=== PATIENT | male | born 1985 | race African-American/Black ===

== ENCOUNTER 2017-07-13 00:51 | Emergency (ER) | payer OTHER, SELFPAY ==
[~2017-07-13] VITALS: Ht 185.4 cm; Wt 94.0 kg
[2017-07-13] MEDS ORDERED: ASPI-650 PO (01:26)
[2017-07-13] MEDS ORDERED: HTN (01:26)
[2017-07-13] MEDS ORDERED: CEFTRIAXONE 250 MG IM ONE (02:30)
[2017-07-13] MEDS ORDERED: AZITHROMYCIN 500 MG TABLET PO ONE (02:30)
[2017-07-13] MEDS ORDERED: CEFTRIAXONE 250 MG ONE (02:42)
[2017-07-13] MEDS ORDERED: AZITHROMYCIN 250 MG TABLET ONE (02:42)
[2017-07-13 03:11] VITALS: BP 115/70
== END 2017-07-13 03:12 | disposition home or self-care (01) ==
LOC: ED 03:07
DX: A56.01 Chlamydial cystitis and urethritis (principal); M79.652 Pain in left thigh; I10 Essential (primary) hypertension; F17.200 Nicotine dependence, unspecified, uncomplicated; Z86.711 Personal history of pulmonary embolism; Z86.718 Personal history of other venous thrombosis and embolism
CPT/HCPCS: 93005; 93971; 96372; 99284; J0696

== ENCOUNTER 2018-03-01 02:48 | Emergency (ER) | payer SELFPAY ==
[~2018-03-01] VITALS: Ht 185.4 cm; Wt 87.0 kg
[~2018-03-01 02:48] MED LIST: ASPI-650 PO; HTN
[2018-03-01 03:47] LABS: BASOPHILS # (AUTO) 0.01 x10^3/uL (0-0.1); BASOPHILS % (AUTO) 0 % (0-1); EOSINOPHILS # (AUTO) 0.03 x10^3/uL (0-0.4); EOSINOPHILS % (AUTO) 1 % (1-7); LYMPHOCYTES # (AUTO) 1.49 x10^3/uL (1-3.4); LYMPHOCYTES % (AUTO) 26 % (22-44); MD NO; MEAN CORPUSCULAR HEMOGLOBIN 27.7 pg (27.5-34.5); MEAN CORPUSCULAR HGB CONC 33.8 g/dL (33.2-36.2); MEAN CORPUSCULAR VOLUME 81.8 fL (81-97); MEAN PLATELET VOLUME 7.4 fL (7.4-10.4); MONOCYTES # (AUTO) 0.26 x10^3/uL (0.2-0.8); MONOCYTES % (AUTO) 5 % (2-9); NEUTROPHILS # (AUTO) 3.99 x10^3/uL (1.8-6.8); NEUTROPHILS % (AUTO) 69 % (42-75); PLATELET COUNT 215 x10^3/uL (130-400); RED BLOOD COUNT 5.52 x10^6/uL (4.38-5.82); RED CELL DISTRIBUTION WIDTH 13.4 % (9.4-14.8)
[2018-03-01 03:53] LABS: ALANINE AMINOTRANSFERASE 20 U/L (12-78); ALBUMIN 3.7 g/dL (3.4-5.0); ANION GAP 5 mmol/L (5-15); CALCIUM 9.2 mg/dL (8.5-10.1); CHLORIDE 108 mmol/L (98-107); CREATININE 1.41 mg/dL (0.7-1.3)
[2018-03-01 03:57] LABS: ALKALINE PHOSPHATASE 48 U/L (45-117); TROPONIN I < 0.015 ng/mL (0.000-0.045)
[2018-03-01 04:00] LABS: BILIRUBIN,TOTAL 0.3 mg/dL (0.2-1.0)
[2018-03-01 05:16] VITALS: BP 130/85
== END 2018-03-01 05:20 | disposition home or self-care (01) ==
LOC: ED 05:06
DX: S29.011A Strain of muscle and tendon of front wall of thorax, initial encounter (principal); I10 Essential (primary) hypertension; X58.XXXA Exposure to other specified factors, initial encounter; Z86.711 Personal history of pulmonary embolism; Z86.718 Personal history of other venous thrombosis and embolism; Y93.B2 Activity, push-ups, pull-ups, sit-ups; Y92.89 Other specified places as the place of occurrence of the external cause; Y99.8 Other external cause status
CPT/HCPCS: 36415; 71045; 80053; 84484; 85025; 85379; 93005; 99285

== ENCOUNTER 2018-08-17 18:10 | Emergency (ER) | payer MEDICAID ==
[~2018-08-17] VITALS: Ht 190.5 cm; Wt 89.4 kg
[2018-08-17] MEDS ORDERED: ACETAMINOPHEN 500 MG TABLET PO ONE (19:00)
[2018-08-17] MEDS ORDERED: ASPI-650 PO (19:05)
[2018-08-17] MEDS ORDERED: RIVAROXABAN 15 MG TABLET PO ONE (20:15)
[2018-08-17] MEDS ORDERED: RIVAROXABAN 10 MG TABLET ONE (20:31)
[2018-08-17] MEDS ORDERED: ACETAMINOPHEN 500 MG TABLET ONE (20:32)
[2018-08-17 20:38] LABS: BASOPHILS # (AUTO) 0.03 x10^3/uL (0-0.1); BASOPHILS % (AUTO) 0 % (0-1); EOSINOPHILS # (AUTO) 0.09 x10^3/uL (0-0.4); EOSINOPHILS % (AUTO) 1 % (1-7); LYMPHOCYTES # (AUTO) 2.15 x10^3/uL (1-3.4); LYMPHOCYTES % (AUTO) 27 % (22-44); MD NO; MEAN CORPUSCULAR HEMOGLOBIN 27.9 pg (27.5-34.5); MEAN CORPUSCULAR HGB CONC 33.5 g/dL (33.2-36.2); MEAN CORPUSCULAR VOLUME 83.2 fL (81-97); MEAN PLATELET VOLUME 7.4 fL (7.4-10.4); MONOCYTES # (AUTO) 0.35 x10^3/uL (0.2-0.8); MONOCYTES % (AUTO) 4 % (2-9); NEUTROPHILS # (AUTO) 5.45 x10^3/uL (1.8-6.8); NEUTROPHILS % (AUTO) 68 % (42-75); PLATELET COUNT 255 x10^3/uL (130-400); RED BLOOD COUNT 5.66 x10^6/uL (4.38-5.82)
[2018-08-17 20:48] LABS: ALBUMIN 3.8 g/dL (3.4-5.0); ANION GAP 5 mmol/L (5-15); CALCIUM 8.6 mg/dL (8.5-10.1); CHLORIDE 109 mmol/L (98-107)
[2018-08-17 21:53] VITALS: BP 142/90
[2018-08-20] MEDS ORDERED: BLOOD THINNER (06:06)
== END 2018-08-17 22:41 | disposition home or self-care (01) ==
LOC: ED 21:49
DX: I82.4Z2 Acute embolism and thrombosis of unspecified deep veins of left distal lower extremity (principal); N28.9 Disorder of kidney and ureter, unspecified; I10 Essential (primary) hypertension; F17.200 Nicotine dependence, unspecified, uncomplicated
CPT/HCPCS: 36415; 80048; 82040; 85025; 93970; 99284

== ENCOUNTER 2018-08-17 22:21 | Emergency (ER) | payer MEDICAID ==
[~2018-08-17] VITALS: Ht 185.4 cm; Wt 89.0 kg
[2018-08-17 22:22] VITALS: BP 135/72
[2018-08-20] MEDS ORDERED: BLOOD THINNER (06:06)
== END 2018-08-17 22:39 | disposition home or self-care (01) ==
LOC: ED 22:33
DX: S39.012A Strain of muscle, fascia and tendon of lower back, initial encounter (principal); X58.XXXA Exposure to other specified factors, initial encounter; Y93.89 Activity, other specified; Y92.89 Other specified places as the place of occurrence of the external cause; Y99.8 Other external cause status
CPT/HCPCS: 99283

== ENCOUNTER 2019-03-05 04:10 | Emergency (ER) | payer MEDICAID ==
[~2019-03-05] VITALS: Ht 182.9 cm; Wt 98.1 kg
[~2019-03-05 04:10] MED LIST changes: +BLOOD THINNER
--- NOTE | 2019-03-05 04:30 | NUR ---
PT PRESENTED WITH C/O NONRADIATING RIGHT SIDED CP THAT IS WORSE WITH MOVEMENT. PT DENIES SOB, N/V, DIZZINESS. HERE STATING THAT HE BELIEVES HE HAS A BLOOD CLOT IN HIS CHEST, ARRIVED IN [place] 5 DAYS AGO ON A BUS. MONITORS APPLIED, SIDERAILS UP X2, CALL LIGHT WITHIN REACH
[2019-03-05 05:19] LABS: BASOPHILS # (AUTO) 0.02 x10^3/uL (0-0.1); BASOPHILS % (AUTO) 0 % (0-1); EOSINOPHILS # (AUTO) 0.26 x10^3/uL (0-0.4); EOSINOPHILS % (AUTO) 4 % (1-7); LYMPHOCYTES # (AUTO) 1.59 x10^3/uL (1-3.4); LYMPHOCYTES % (AUTO) 25 % (22-44); MD NO; MEAN CORPUSCULAR HEMOGLOBIN 28.2 pg (27.5-34.5); MEAN CORPUSCULAR HGB CONC 32.9 g/dL (33.2-36.2); MEAN CORPUSCULAR VOLUME 85.7 fL (81-97); MEAN PLATELET VOLUME 6.8 fL (7.4-10.4); MONOCYTES # (AUTO) 0.59 x10^3/uL (0.2-0.8); MONOCYTES % (AUTO) 9 % (2-9); NEUTROPHILS # (AUTO) 4.04 x10^3/uL (1.8-6.8); NEUTROPHILS % (AUTO) 62 % (42-75); PLATELET COUNT 220 x10^3/uL (130-400); RED BLOOD COUNT 5.48 x10^6/uL (4.38-5.82); RED CELL DISTRIBUTION WIDTH 13.3 % (9.4-14.8)
[2019-03-05 05:31] LABS: ALANINE AMINOTRANSFERASE 23 U/L (12-78); ALBUMIN 3.6 g/dL (3.4-5.0); ANION GAP 2 mmol/L (5-15); CALCIUM 8.9 mg/dL (8.5-10.1); CHLORIDE 109 mmol/L (98-107); CREATININE 1.38 mg/dL (0.7-1.3)
--- NOTE | 2019-03-05 05:33 | NUR ---
PT RESTING CALMLY, DENIES NEEDS, MONITORS IN PLACE, CALL LIGHT WITHIN REACH. AWAITING LAB AND XRAY RESULT
[2019-03-05 05:36] LABS: ALKALINE PHOSPHATASE 48 U/L (45-117); BILIRUBIN,TOTAL 0.2 mg/dL (0.2-1.0); TOTAL PROTEIN 7.1 g/dL (6.4-8.2); TROPONIN I < 0.015 ng/mL (0.000-0.045)
--- NOTE | 2019-03-05 06:21 | NUR ---
PT RESTING WITH EYES CLOSED, NADN, RESPIRATIONS EQUAL AND UNLABORED, MONITORS IN PLACE, CALL LIGHT WITHIN REACH. AWAITING XRAY RESULT
--- NOTE | 2019-03-05 06:56 | NUR ---
report given to torres michelle
[2019-03-05 07:24] VITALS: BP 144/85
--- NOTE | 2019-03-05 07:25 | NUR ---
EDMD AT BEDSIDE DISCUSSING POC, PT WITH DC ORDERS.
--- NOTE | 2019-03-05 07:37 | NUR ---
Patient/Caregiver given discharge instructions and they have confirmed that they understand the instructions. Patient ambulatory with steady gait. Pt left with all personal belongings.
== END 2019-03-05 07:38 | disposition home or self-care (01) ==
LOC: ED 07:00
DX: M94.0 Chondrocostal junction syndrome [Tietze] (principal); R07.89 Other chest pain; I10 Essential (primary) hypertension
CPT/HCPCS: 36415; 71045; 80053; 84484; 85025; 93005; 99284

== ENCOUNTER 2019-10-27 05:33 | Emergency (ER) | payer MEDICAID ==
[~2019-10-27] VITALS: Ht 185.4 cm; Wt 107.8 kg
[2019-10-27] MEDS ORDERED: CEFTRIAXONE 250 MG ONE (06:25)
[2019-10-27] MEDS ORDERED: CEFTRIAXONE 250 MG IM ONE (06:30)
--- NOTE | 2019-10-27 06:39 | NUR ---
Pt medicated per MAR.
--- NOTE | 2019-10-27 06:47 | NUR ---
urine sample taken to lab
--- NOTE | 2019-10-27 06:50 | NUR ---
Report given to Jamee WYNN.
--- NOTE | 2019-10-27 07:05 | NUR ---
FIRST CONTACT. KINGSLEY THIBODEAUX IS DISCHARGING THE PT. PT. REMAINS A & O X 4 WITH A GCS OF 15. PT. WAS GIVEN INSTRUCTIONS AND A SCRIPT WITH UNDERSTANDING VERBALIZED ALONG WITH WILLINGNESS TO COMPLY. PT. WAS AMBULATORY WITH A STEADY GAIT TO THE DISCHARGE DESK. VSS.
[2019-10-27 07:06] VITALS: BP 133/80
[2019-10-27 07:55] LABS: CULTURE INDICATED? NO; MICROSCOPIC NOT IND
== END 2019-10-27 07:08 | disposition home or self-care (01) ==
LOC: ED 05:57
DX: A51.0 Primary genital syphilis (principal); I10 Essential (primary) hypertension
CPT/HCPCS: 36415; 81003; 86592; 86780; 87491; 87591; 96372; 99283; J0696

== ENCOUNTER 2020-05-14 21:47 | Observation (INO) | payer MEDICAID ==
[~2020-05-14] VITALS: Ht 185.4 cm; Wt 102.5 kg
--- NOTE | 2020-05-14 22:34 | NUR ---
PATIENT STATING DULL CONSTANT CHEST PAIN ON RIGHT SIDE THAT STARTED 2-3 DAYS AGO AND HAS BEEN GETTING PROGRESSIVLY WORSE. PATIENT STATES HAVING DVT AND PE IN THE PAST. PATENT ADMITS TO DOING COCAINE YESTURDAY. PATIENT PLACED ON ALL MONITORS, AND SAFETY MEASURES IN PLACE. AWAITING ERP ASSESSMENT
--- NOTE | 2020-05-14 23:00 | NUR ---
ERP AT BEDSIDE
[2020-05-14] MEDS ORDERED: SODIUM CHLORIDE FLUSH 10ML SYR IVF ONE (23:30)
--- NOTE | 2020-05-14 23:37 | NUR ---
IV LINE ESTABLISHED, LABS DRAWN, AWAITING CT
[2020-05-14 23:50] LABS: BASOPHILS # (AUTO) 0.08 x10^3/uL (0-0.1); BASOPHILS % (AUTO) 1 % (0-1); EOSINOPHILS # (AUTO) 0.09 x10^3/uL (0-0.4); EOSINOPHILS % (AUTO) 1 % (1-7); LYMPHOCYTES # (AUTO) 1.97 x10^3/uL (1-3.4); LYMPHOCYTES % (AUTO) 18 % (22-44); MD NO; MEAN CORPUSCULAR HEMOGLOBIN 27.1 pg (27.5-34.5); MEAN CORPUSCULAR HGB CONC 33.3 g/dL (33.2-36.2); MEAN CORPUSCULAR VOLUME 81.3 fL (81-97); MEAN PLATELET VOLUME 6.9 fL (7.4-10.4); MONOCYTES # (AUTO) 0.92 x10^3/uL (0.2-0.8); MONOCYTES % (AUTO) 8 % (2-9); NEUTROPHILS # (AUTO) 7.86 x10^3/uL (1.8-6.8); NEUTROPHILS % (AUTO) 72 % (42-75); PLATELET COUNT 321 x10^3/uL (130-400); RED BLOOD COUNT 5.66 x10^6/uL (4.38-5.82); RED CELL DISTRIBUTION WIDTH 13.6 % (9.4-14.8)
[2020-05-14 23:59] LABS: ANION GAP 5 mmol/L (5-15); CALCIUM 9.7 mg/dL (8.5-10.1); CHLORIDE 106 mmol/L (98-107)
[2020-05-15 00:03] LABS: CREATININE 1.45 mg/dL (0.7-1.3); TROPONIN I < 0.015 ng/mL (0.000-0.045)
[2020-05-15] MEDS ORDERED: OMNIPAQUE 350 MG/ML, 75ML BOTTLE ONE (00:31)
--- NOTE | 2020-05-15 00:45 | NUR ---
ULTRASOUND AT BEDSIDE
--- NOTE | 2020-05-15 01:20 | NUR ---
PT. RESTING ON GURNEY IN SITTING POSITION; RESP NON-LABORED. PT. ON 2L O2 VIA NC THAT WAS PLACED PRIOR TO CT SCAN PT. RA SAT WAS BETWEEN 89-90% ON RA. PT. REQUESTING WATER. AWAITING CT RESULTS. NO OTHER REQUEST AT THIS TIME. FRIEND AT FOR SUPPORT.
[2020-05-15] MEDS ORDERED: AZITHROMYCIN 500 MG in SODIUM CHLORIDE 0.9% 250 ML IV ONE (01:35)
[2020-05-15] MEDS ORDERED: HEPARIN 5,000 UNITS/ML, 1ML IV ONE (02:00)
--- NOTE | 2020-05-15 02:10 | NUR ---
LAB COMPLETED 2 SETS OF BLOOD CULTURES; 2ND IV ESTABLISHED.
[2020-05-15] MEDS: CEFTRIAXONE PMX 1GM/50ML 50 ML IVPB ONE ×2 (02:13→02:31)
[2020-05-15] MEDS ORDERED: HEPARIN 5,000 UNITS/ML, 1ML ONE (02:14)
[2020-05-15] MEDS ORDERED: ACETAMINOPHEN 500 MG TABLET ONE (02:15)
[2020-05-15] MEDS ORDERED: CEFTRIAXONE PMX 1GM/50ML 50 ML ONE (02:15)
[2020-05-15] MEDS ORDERED: HEPARIN 25,000 UNITS/250ML PMX 250 ML ONE (02:15)
[2020-05-15] MEDS ORDERED: MORPHINE SULFATE 4 MG/ML, 1ML ONE (02:19)
[2020-05-15] MEDS: HEPARIN 25,000 UNITS/250ML PMX 250 ML IV PRN ×2 (02:28→21:12)
[2020-05-15] MEDS ORDERED: ACETAMINOPHEN 500 MG TABLET PO ONE (02:30)
[2020-05-15] MEDS ORDERED: MORPHINE SULFATE 4 MG/ML, 1ML IVPush PRN (02:30)
--- NOTE | 2020-05-15 02:41 | NUR ---
PT. WAS MEDICATED FOR REPORTED 9/10 CHEST PAIN PER MAR. PT. REPORTED ALMOST IMMEDIATE RELIEF FROM PAIN AFTER INFORMATION MANAGEMENT SPECIALIST. HEPARIN INFUSING PER MAR. IV ABX ALSO INFUSING PER MAR. PT. MEDICATED FOR TEMP OF 101.9. PT. AWARE OF ED HOLD AND TO BE PLACED ON HOSPITAL BED.
--- NOTE | 2020-05-15 03:20 | NUR ---
PT. MOVED OVER TO HOSPITAL BED. ALL MONITORS REMAIN IN PLACE; ALL SAFETY MEASURES OBSERVED. CALL LIGHT IN REACH. URINAL AT BS. PT. DENIES OTHER NEEDS AT THIS TIME.
[2020-05-15] MEDS ORDERED: PROMETHAZINE 25 MG/ML, 1ML IM PRN (04:00)
[2020-05-15] MEDS ORDERED: BISACODYL 10 MG SUPP PR PRN (04:00)
[2020-05-15] MEDS ORDERED: hydrALAzine 20 MG/ML, 1ML IVPush PRN (04:00)
[2020-05-15] MEDS ORDERED: DOCUSATE 100 MG CAPSULE PO PRN (04:00)
[2020-05-15] MEDS ORDERED: ONDANSETRON ODT 4 MG PO PRN (04:00)
[2020-05-15] MEDS ORDERED: POLYETHYLENE GLYCOL 17 GM PACKET PO PRN (04:00)
[2020-05-15] MEDS ORDERED: ONDANSETRON 2MG/ML, 2ML IVPush PRN (04:00)
--- NOTE | 2020-05-15 07:07 | NUR ---
REPORT GIVEN TO KINGSLEY HEDRICK
--- NOTE | 2020-05-15 07:24 | NUR ---
vs updated including temp. pt transfered to floor by tech
[2020-05-15 08:45] VITALS: BP 146/89
[2020-05-15] MEDS: morphine SULFATE 10 MG/ML, 1ML IVPush PRN ×2 (09:08→14:30)
[2020-05-15] MEDS: HEPARIN 5,000 UNITS/ML, 1ML IV PRN ×2 (11:01→18:05)
[2020-05-15 14:12] VITALS: BP 122/87
[2020-05-15 17:47] LABS: TROPONIN I < 0.015 ng/mL (0.000-0.045)
[2020-05-15 20:41] VITALS: BP 155/87
[2020-05-15] MEDS: ACETAMINOPHEN 325 MG TABLET PO PRN (20:41)
[2020-05-15] MEDS: OXYcodone IR 5MG TABLET PO PRN (20:41)
[2020-05-15] MEDS ORDERED: SODIUM CHLORIDE NASAL SPRAY 45ML BOTTLE NAS PRN (21:00)
[2020-05-15 23:39] LABS: TROPONIN I < 0.015 ng/mL (0.000-0.045)
[2020-05-16 00:16] VITALS: BP 130/82
[2020-05-16] MEDS: CEFTRIAXONE PMX 1GM/50ML 50 ML IV SCH (02:04)
[2020-05-16] MEDS: AZITHROMYCIN 500 MG in SODIUM CHLORIDE 0.9% 250 ML IV SCH (02:45)
[2020-05-16] MEDS: OXYcodone/APAP 5/325MG TABLET PO PRN ×2 (03:03→10:39)
[2020-05-16 06:21] LABS: BASOPHILS # (AUTO) 0.03 x10^3/uL (0-0.1); BASOPHILS % (AUTO) 0 % (0-1); EOSINOPHILS % (AUTO) 1 % (1-7); LYMPHOCYTES # (AUTO) 0.79 x10^3/uL (1-3.4); LYMPHOCYTES % (AUTO) 8 % (22-44); MD NO; MEAN CORPUSCULAR HEMOGLOBIN 26.9 pg (27.5-34.5); MEAN CORPUSCULAR HGB CONC 33.1 g/dL (33.2-36.2); MEAN CORPUSCULAR VOLUME 81.3 fL (81-97); MONOCYTES # (AUTO) 0.54 x10^3/uL (0.2-0.8); MONOCYTES % (AUTO) 6 % (2-9); NEUTROPHILS # (AUTO) 8.43 x10^3/uL (1.8-6.8); NEUTROPHILS % (AUTO) 85 % (42-75); PLATELET COUNT 276 x10^3/uL (130-400); RED BLOOD COUNT 5.17 x10^6/uL (4.38-5.82); RED CELL DISTRIBUTION WIDTH 13.8 % (9.4-14.8)
[2020-05-16 06:26] LABS: ALBUMIN 2.9 g/dL (3.4-5.0); ANION GAP 5 mmol/L (5-15); CALCIUM 8.7 mg/dL (8.5-10.1); CHLORIDE 106 mmol/L (98-107)
[2020-05-16 06:29] LABS: ALANINE AMINOTRANSFERASE 38 U/L (12-78); ALKALINE PHOSPHATASE 65 U/L (45-117); BILIRUBIN,TOTAL 0.4 mg/dL (0.2-1.0); CHOL/HDL RATIO 4.6; CHOLESTEROL, TOTAL 178 mg/dL (140-239); CREATININE 1.19 mg/dL (0.7-1.3); HDL CHOL % 22 % (26-37); HDL CHOLESTEROL (DIRECT) 39 mg/dL (40-60); LDL CHOLESTEROL,CALCULATED 118 mg/dL (54-169); TOTAL PROTEIN 7.6 g/dL (6.4-8.2); TRIGLYCERIDES 107 mg/dL (50-200); TROPONIN I < 0.015 ng/mL (0.000-0.045); VLDL CHOLESTEROL 21 mg/dL (0-25)
[2020-05-16] MEDS: HEPARIN 5,000 UNITS/ML, 1ML IV PRN (06:38)
[2020-05-16 08:31] VITALS: BP 135/92
[2020-05-16] MEDS: DOCUSATE 100 MG CAPSULE PO SCH ×3 (09:00→19:47)
[2020-05-16 14:24] VITALS: BP 141/91
[2020-05-16] MEDS: HEPARIN 25,000 UNITS/250ML PMX 250 ML IV PRN (14:52)
[2020-05-16 18:20] VITALS: BP 132/89
[2020-05-16] MEDS: ACETAMINOPHEN 325 MG TABLET PO PRN (18:42)
[2020-05-16] MEDS: OXYcodone IR 5MG TABLET PO PRN (19:48)
[2020-05-17 01:45] VITALS: BP 113/68
[2020-05-17] MEDS: CEFTRIAXONE PMX 1GM/50ML 50 ML IV SCH (02:49)
[2020-05-17] MEDS: OXYcodone IR 5MG TABLET PO PRN ×3 (02:50→18:15)
[2020-05-17] MEDS: AZITHROMYCIN 500 MG in SODIUM CHLORIDE 0.9% 250 ML IV SCH (04:04)
[2020-05-17] MEDS: HEPARIN 5,000 UNITS/ML, 1ML IV PRN ×2 (06:35→12:55)
[2020-05-17] MEDS: HEPARIN 25,000 UNITS/250ML PMX 250 ML IV PRN ×2 (06:39→21:59)
[2020-05-17 07:10] VITALS: BP 116/76
[2020-05-17] MEDS: DOCUSATE 100 MG CAPSULE PO SCH ×2 (08:30→20:21)
[2020-05-17] MEDS: CEFDINIR 300 MG CAPSULE PO SCH ×2 (09:57→20:21)
[2020-05-17] MEDS: DOXYCYCLINE 100MG TABLET PO SCH ×2 (09:57→20:21)
[2020-05-17] MEDS: OXYcodone/APAP 5/325MG TABLET PO PRN (12:41)
[2020-05-17 13:01] VITALS: BP 107/67
[2020-05-17 20:24] VITALS: BP 132/89
[2020-05-18] MEDS: OXYcodone IR 5MG TABLET PO PRN ×2 (01:34→08:34)
[2020-05-18 01:35] LABS: BASOPHILS # (AUTO) 0.03 x10^3/uL (0-0.1); BASOPHILS % (AUTO) 0 % (0-1); EOSINOPHILS # (AUTO) 0.29 x10^3/uL (0-0.4); EOSINOPHILS % (AUTO) 3 % (1-7); LYMPHOCYTES % (AUTO) 11 % (22-44); MD NO; MEAN CORPUSCULAR HGB CONC 33.2 g/dL (33.2-36.2); MEAN CORPUSCULAR VOLUME 81.3 fL (81-97); MEAN PLATELET VOLUME 6.9 fL (7.4-10.4); MONOCYTES # (AUTO) 0.41 x10^3/uL (0.2-0.8); MONOCYTES % (AUTO) 5 % (2-9); NEUTROPHILS # (AUTO) 7.05 x10^3/uL (1.8-6.8); NEUTROPHILS % (AUTO) 80 % (42-75); PLATELET COUNT 296 x10^3/uL (130-400); RED BLOOD COUNT 5.03 x10^6/uL (4.38-5.82); RED CELL DISTRIBUTION WIDTH 13.6 % (9.4-14.8)
[2020-05-18 01:40] VITALS: BP 144/82
[2020-05-18] MEDS: DOXYCYCLINE 100MG TABLET PO SCH (08:29)
[2020-05-18] MEDS: CEFDINIR 300 MG CAPSULE PO SCH (08:29)
[2020-05-18 08:35] VITALS: BP 144/89
[2020-05-18] MEDS: DOCUSATE 100 MG CAPSULE PO SCH (08:35)
[2020-05-18] MEDS: HEPARIN 25,000 UNITS/250ML PMX 250 ML IV PRN (09:16)
[2020-05-18] MEDS ORDERED: APIXABAN 5 MG TABLET PO SCH (10:45)
[2020-05-18] MEDS ORDERED: CEFD300C37 PO (11:54)
[2020-05-18] MEDS ORDERED: APIX5TAB PO (11:54)
[2020-05-18] MEDS ORDERED: DOXY100T PO (11:54)
[2020-05-18] MEDS ORDERED: OXYcodone/APAP 5/325MG PO (11:54)
[2020-05-18] MEDS ORDERED: DOCU100C33 PO (11:54)
[2020-05-18 13:42] VITALS: BP 134/78
[2020-05-25] MEDS ORDERED: APIXABAN 5 MG TABLET PO SCH (09:00)
== END 2020-05-18 17:27 | disposition home or self-care (01) ==
LOC: ED 05-15 02:36 → INTOOBSV 05-15 02:51 → EDIP 05-15 02:51 → 4EST 05-15 07:30 → 5SO 05-16 18:16
PROVIDERS: ADMIT Internal Medicine; ATTEND Internal Medicine
DX: I26.99 Other pulmonary embolism without acute cor pulmonale (principal); Z20.828 Contact with and (suspected) exposure to other viral communicable diseases; J15.6 Pneumonia due to other Gram-negative bacteria; J96.01 Acute respiratory failure with hypoxia; I82.402 Acute embolism and thrombosis of unspecified deep veins of left lower extremity; N17.0 Acute kidney failure with tubular necrosis; I12.9 Hypertensive chronic kidney disease with stage 1 through stage 4 chronic kidney disease, or unspecified chronic kidney disease; N18.9 Chronic kidney disease, unspecified; F14.90 Cocaine use, unspecified, uncomplicated; F12.90 Cannabis use, unspecified, uncomplicated; F17.200 Nicotine dependence, unspecified, uncomplicated; Z86.711 Personal history of pulmonary embolism; Z86.718 Personal history of other venous thrombosis and embolism; Z79.899 Other long term (current) drug therapy
CPT/HCPCS: 36415; 71275; 80048; 80053; 80061; 82728; 83615; 83735; 84145; 84443; 84484; 85025; 85520; 86140; 87040; 87635; 93005; 93306; 93971; 96365; 96366; 96367; 96375; 96376; 99291; G0378; J0456; J0696; J1644; J2270; J7050; Q9967

== ENCOUNTER 2020-06-23 01:38 | Emergency (ER) | payer MEDICAID ==
[~2020-06-23] VITALS: Ht 188 cm; Wt 94.4 kg
[~2020-06-23 01:38] MED LIST changes: +APIX5TAB PO; +CEFD300C37 PO; +DOCU100C33 PO; +DOXY100T PO; +OXYcodone/APAP 5/325MG PO
[2020-06-23 01:41] VITALS: BP 155/109
--- NOTE | 2020-06-23 01:42 | NUR ---
THIS IS A 34Y M THAT CAME IN FOR L LUNG PAIN, PT STS RAN OUT OF BLOOD THINNERS ABOUT A WEEK AGO. PT WAS HERE LAST MONTH DX WITH BILAT PE. PT CONNECTED TO ALL MONITORING VSS NADN.
--- NOTE | 2020-06-23 01:49 | NUR ---
ERP AT BEDSIDE FOR ASSESSMENT
[2020-06-23] MEDS ORDERED: KETOROLAC 30 MG/1 ML ONE (02:00)
[2020-06-23] MEDS ORDERED: SODIUM CHLORIDE FLUSH 10ML SYR IVF ONE (02:00)
[2020-06-23] MEDS ORDERED: SODIUM CHLORIDE 0.9%, 500ML IVBOLUS ONE (02:00)
[2020-06-23] MEDS ORDERED: KETOROLAC 30 MG/1 ML IVPush ONE (02:00)
[2020-06-23 02:18] LABS: BASOPHILS # (AUTO) 0.01 x10^3/uL (0-0.1); BASOPHILS % (AUTO) 0 % (0-1); EOSINOPHILS # (AUTO) 0.02 x10^3/uL (0-0.4); EOSINOPHILS % (AUTO) 0 % (1-7); LYMPHOCYTES % (AUTO) 16 % (22-44); MD NO; MEAN CORPUSCULAR HEMOGLOBIN 26.7 pg (27.5-34.5); MEAN CORPUSCULAR HGB CONC 32.4 g/dL (33.2-36.2); MEAN PLATELET VOLUME 7.4 fL (7.4-10.4); MONOCYTES # (AUTO) 0.61 x10^3/uL (0.2-0.8); MONOCYTES % (AUTO) 8 % (2-9); NEUTROPHILS # (AUTO) 6.18 x10^3/uL (1.8-6.8); NEUTROPHILS % (AUTO) 76 % (42-75); PLATELET COUNT 250 x10^3/uL (130-400); RED BLOOD COUNT 5.83 x10^6/uL (4.38-5.82); RED CELL DISTRIBUTION WIDTH 15.3 % (9.4-14.8)
--- NOTE | 2020-06-23 02:18 | NUR ---
BREAK RN: PATIENT GIVEN MEDICATIONS, TOLERATED WELL. NO NOTED ADDITIONAL NEEDS AT THIS TIME. WILL CONTINUE TO MONITOR.
[2020-06-23 02:48] LABS: ALBUMIN 3.5 g/dL (3.4-5.0); ANION GAP 9 mmol/L (5-15); CALCIUM 8.8 mg/dL (8.5-10.1); CHLORIDE 110 mmol/L (98-107)
[2020-06-23 02:53] LABS: ALANINE AMINOTRANSFERASE 19 U/L (12-78); ALKALINE PHOSPHATASE 77 U/L (45-117); BILIRUBIN,TOTAL 0.4 mg/dL (0.2-1.0); CREATININE 1.23 mg/dL (0.7-1.3); TOTAL PROTEIN 8.1 g/dL (6.4-8.2); TROPONIN I < 0.015 ng/mL (0.000-0.045)
[2020-06-23] MEDS ORDERED: OMNIPAQUE 350 MG/ML, 100ML BOTTLE ONE (03:27)
[2020-06-23 04:04] LABS: SALICYLATE LEVEL 3.2 mg/dL (2.8-20.0)
== END 2020-06-23 04:45 | disposition home or self-care (01) ==
LOC: ED 04:00
DX: J15.9 Unspecified bacterial pneumonia (principal); Z86.711 Personal history of pulmonary embolism; R07.89 Other chest pain; R06.02 Shortness of breath; R94.31 Abnormal electrocardiogram [ECG] [EKG]; I10 Essential (primary) hypertension; F17.210 Nicotine dependence, cigarettes, uncomplicated; Z86.718 Personal history of other venous thrombosis and embolism
CPT/HCPCS: 36415; 71275; 80053; 80307; 84484; 85025; 93005; 96361; 96374; 99285; J1885; J7040; Q9967

== ENCOUNTER 2021-01-11 10:08 | Emergency (ER) | payer MEDICAID ==
[~2021-01-11] VITALS: Ht 188 cm; Wt 103.0 kg
[~2021-01-11 10:08] MED LIST changes: +ASPI-1026 PO; -ASPI-650 PO
--- NOTE | 2021-01-11 10:15 | NUR ---
PT MEDICATED ORDERED. PT WAS DROPPED BY GIRLFRIENDS MOTHER. REVIEWED DC INSTRUCTIONS WITH PT. UNDERSTANDING VERBALIZED. PT LEFT AMB, GAIT STEADY.
[2021-01-11] MEDS ORDERED: SODIUM CHLORIDE FLUSH 10ML SYR IVF ONE (11:00)
[2021-01-11] MEDS ORDERED: CEFTRIAXONE 1,000 MG IM ONE (11:00)
[2021-01-11 11:34] LABS: ALBUMIN 3.5 g/dL (3.4-5.0); ANION GAP 7 mmol/L (5-15); CALCIUM 8.8 mg/dL (8.5-10.1); CHLORIDE 106 mmol/L (98-107); CREATININE 1.19 mg/dL (0.7-1.3)
[2021-01-11 11:36] LABS: TROPONIN I < 0.015 ng/mL (0.000-0.045)
[2021-01-11] MEDS ORDERED: OMNIPAQUE 350 MG/ML, 75ML BOTTLE ONE (12:00)
--- NOTE | 2021-01-11 12:09 | NUR ---
pt in CT awaiting results.
[2021-01-11 12:24] LABS: BASOPHILS % (AUTO) 1 % (0-1); EOSINOPHILS % (AUTO) 2 % (1-7); LYMPHOCYTES % (AUTO) 29 % (22-44); MEAN CORPUSCULAR HEMOGLOBIN 27.4 pg (27.5-34.5); MEAN CORPUSCULAR HGB CONC 34.2 g/dL (33.2-36.2); MEAN PLATELET VOLUME 7.2 fL (7.4-10.4); MONOCYTES % (AUTO) 8 % (2-9); NEUTROPHILS % (AUTO) 61 % (42-75); PLATELET COUNT 281 x10^3/uL (130-400); RED BLOOD COUNT 5.39 x10^6/uL (4.38-5.82); RED CELL DISTRIBUTION WIDTH 14.2 % (9.4-14.8)
[2021-01-11 12:25] LABS: MD NO
[2021-01-11] MEDS ORDERED: CEFTRIAXONE 500 MG in DEXTROSE 5% 50 ML IV ONE (12:30)
[2021-01-11 14:07] VITALS: BP 140/71
== END 2021-01-11 14:10 | disposition home or self-care (01) ==
LOC: ED 12:52
DX: L04.1 Acute lymphadenitis of trunk (principal); I26.99 Other pulmonary embolism without acute cor pulmonale; R07.89 Other chest pain; R94.31 Abnormal electrocardiogram [ECG] [EKG]; R06.00 Dyspnea, unspecified; R06.02 Shortness of breath; I10 Essential (primary) hypertension; Z72.9 Problem related to lifestyle, unspecified; Z86.718 Personal history of other venous thrombosis and embolism
CPT/HCPCS: 36415; 71045; 71275; 80048; 82040; 84484; 85025; 93005; 96365; 99285; J0696; Q9967

== ENCOUNTER 2021-03-24 02:07 | Emergency (ER) | payer MEDICAID ==
[~2021-03-24] VITALS: Ht 182.9 cm; Wt 104.0 kg
[2021-03-24 02:11] VITALS: BP 148/98
--- NOTE | 2021-03-24 02:26 | NUR ---
INITIAL PT CONTACT. PT PRESENTS TO ED C/O SOB X 2 DAYS. PAIN WITH DEEP BREATHING. PAIN ON RIGHT CHEST RADIATES TO BACK. HX OF PE AND ON ELIQUIS. PT SITTING UPRIGHT ON GURNEY, CONTINUOUS MONITORING IN PLACE. PT PROVIDED WARM BLANKET. NO ADDITIONAL NEEDS AT THIS TIME. CALL LIGHT AND PERSONAL BELONGINGS WITHIN REACH. SIGNIFICANT OTHER AT BEDSIDE. AWAITING ERP
[2021-03-24] MEDS ORDERED: ACETAMINOPHEN 500 MG TABLET PO ONE (02:30)
[2021-03-24] MEDS ORDERED: KETOROLAC 30 MG/1 ML IM ONE (02:30)
[2021-03-24] MEDS ORDERED: KETOROLAC 30 MG/1 ML ONE (02:40)
[2021-03-24] MEDS ORDERED: ACETAMINOPHEN 500 MG TABLET ONE (02:40)
[2021-03-24 02:55] LABS: BASOPHILS % (AUTO) 1 % (0-1); EOSINOPHILS % (AUTO) 1 % (1-7); LYMPHOCYTES % (AUTO) 27 % (22-44); MEAN CORPUSCULAR HEMOGLOBIN 27.6 pg (27.5-34.5); MEAN CORPUSCULAR HGB CONC 34.3 g/dL (33.2-36.2); MEAN PLATELET VOLUME 7.5 fL (7.4-10.4); MONOCYTES % (AUTO) 10 % (2-9); NEUTROPHILS % (AUTO) 61 % (42-75); PLATELET COUNT 209 x10^3/uL (130-400); RED BLOOD COUNT 5.82 x10^6/uL (4.38-5.82); RED CELL DISTRIBUTION WIDTH 14.2 % (9.4-14.8)
[2021-03-24 02:57] LABS: ALBUMIN 3.9 g/dL (3.4-5.0); ANION GAP 7 mmol/L (5-15); CALCIUM 9.2 mg/dL (8.5-10.1); CHLORIDE 104 mmol/L (98-107); CREATININE 1.22 mg/dL (0.7-1.3)
[2021-03-24 03:01] LABS: TROPONIN I < 0.015 ng/mL (0.000-0.045)
--- NOTE | 2021-03-24 03:55 | NUR ---
PT TO CT
[2021-03-24] MEDS ORDERED: OMNIPAQUE 350 MG/ML, 75ML BOTTLE ONE (04:03)
[2021-03-24] MEDS ORDERED: LIDODERM 5% PATCH TD ONE ×2 (05:00)
--- NOTE | 2021-03-24 05:12 | NUR ---
Patient given discharge instructions and they have confirmed that they understand the instructions. Patient ambulatory with steady gait. NAD, all questions answered appropriately, denies additional needs at this time. No personal belongings left in room after discharge.
== END 2021-03-24 05:14 | disposition home or self-care (01) ==
LOC: ED 05:00
DX: R07.89 Other chest pain (principal); R06.02 Shortness of breath; I10 Essential (primary) hypertension; F17.210 Nicotine dependence, cigarettes, uncomplicated; Z86.718 Personal history of other venous thrombosis and embolism; Z86.711 Personal history of pulmonary embolism
CPT/HCPCS: 36415; 71045; 71275; 80048; 82040; 84484; 85025; 85379; 93005; 96372; 99285; 99406; J1885; Q9967

== ENCOUNTER 2021-03-25 00:08 | Inpatient (IN) | payer MEDICAID ==
[~2021-03-25] VITALS: Ht 182.9 cm; Wt 101.3 kg
--- NOTE | 2021-03-25 00:40 | NUR ---
pt c/o OF CP SINCE 4 DAYS AGO. WAS SEEN IN ED YESTERDAY AND STATES HE HAS BEEN DIAGNOSED WITH BLOOD CLOT. PT APPEARS TO BE BREATHING RAPIDLY. ATTACHED TO MONITORS. VSS. MARCI DISTRESS. BED IN LOW POSITION. RAILS ENGAGED. CALL LIGHT ON LAP. TM
--- NOTE | 2021-03-25 01:20 | NUR ---
Patient is sleeping comfortably in bed. eyes closed. Bed in lowest, rails engaged, call light on lap. Vital Signs within normal limits. WCTM. nadn
--- NOTE | 2021-03-25 02:05 | NUR ---
TASK RN: ERP AT BEDSIDE WHO IS REQUESTING A ROOM AIR TRIAL. O2 OFF AT THIS TIME.
[2021-03-25 02:22] LABS: BASOPHILS % (AUTO) 0 % (0-1); EOSINOPHILS % (AUTO) 0 % (1-7); LYMPHOCYTES % (AUTO) 6 % (22-44); MEAN CORPUSCULAR HEMOGLOBIN 27.3 pg (27.5-34.5); MEAN CORPUSCULAR HGB CONC 34.2 g/dL (33.2-36.2); MEAN PLATELET VOLUME 7.4 fL (7.4-10.4); MONOCYTES % (AUTO) 8 % (2-9); NEUTROPHILS % (AUTO) 86 % (42-75); PLATELET COUNT 197 x10^3/uL (130-400); RED BLOOD COUNT 5.82 x10^6/uL (4.38-5.82); RED CELL DISTRIBUTION WIDTH 14.1 % (9.4-14.8)
[2021-03-25] MEDS ORDERED: ACETAMINOPHEN 500 MG TABLET ONE (02:23)
[2021-03-25] MEDS ORDERED: ACETAMINOPHEN 500 MG TABLET PO ONE (02:30)
[2021-03-25 02:31] LABS: ALANINE AMINOTRANSFERASE 24 U/L (12-78); ALBUMIN 3.6 g/dL (3.4-5.0); ANION GAP 3 mmol/L (5-15); CALCIUM 9.3 mg/dL (8.5-10.1); CHLORIDE 108 mmol/L (98-107); CREATININE 1.13 mg/dL (0.7-1.3)
[2021-03-25 02:35] LABS: ALKALINE PHOSPHATASE 62 U/L (45-117); BILIRUBIN,TOTAL 0.9 mg/dL (0.2-1.0); TOTAL PROTEIN 8.3 g/dL (6.4-8.2); TROPONIN I < 0.015 ng/mL (0.000-0.045)
--- NOTE | 2021-03-25 03:08 | NUR ---
PT SP02 ON ROOM AIR IS 89%. PT PUT BACK ON OXYGEN 2L AND MAINTAINING 95% AND ABOVE.
[2021-03-25] MEDS ORDERED: ONDANSETRON 2MG/ML, 2ML ONE (03:27)
[2021-03-25] MEDS ORDERED: MORPHINE SULFATE 4 MG/ML, 1ML ONE (03:28)
[2021-03-25] MEDS ORDERED: AZITHROMYCIN 500 MG in SODIUM CHLORIDE 0.9% 250 ML IV ONE (03:30)
[2021-03-25] MEDS ORDERED: ONDANSETRON 2MG/ML, 2ML IVPush ONE (03:30)
[2021-03-25] MEDS: CEFTRIAXONE 1,000 MG in DEXTROSE 5% 50 ML IVPB ONE ×2 (03:30→03:35)
[2021-03-25] MEDS ORDERED: MORPHINE SULFATE 4 MG/ML, 1ML IVPush PRN (03:30)
--- NOTE | 2021-03-25 03:43 | NUR ---
blood cultures done before ANTIBIOTIC WAS HUNG AND STARTED.
--- NOTE | 2021-03-25 04:42 | NUR ---
GAVE REPORT TO RAFFY Addendum: 03/25/21 at 0442 by [email or web address] RAFFY WYNN
[2021-03-25 05:04] VITALS: BP 154/95
[2021-03-25] MEDS ORDERED: MELATONIN 5 MG TABLET PO PRN (06:00)
[2021-03-25] MEDS ORDERED: ACETAMINOPHEN 325 MG TABLET PO PRN (06:00)
[2021-03-25] MEDS ORDERED: LABETALOL 5MG/ML, 20ML IVPush PRN (06:00)
[2021-03-25 06:42] VITALS: BP 150/101
[2021-03-25] MEDS: morphine SULFATE 10 MG/ML, 1ML IV PRN ×2 (07:36→18:30)
[2021-03-25] MEDS: CEFTRIAXONE 1,000 MG in DEXTROSE 5% 50 ML IVPB SCH (09:15)
[2021-03-25] MEDS: DOXYCYCLINE 100MG TABLET PO SCH ×2 (10:52→21:10)
[2021-03-25] MEDS: APIXABAN 5 MG TABLET PO SCH ×2 (10:52→21:10)
[2021-03-25] MEDS: SENNA/DOCUSATE TABLET PO SCH (10:54)
[2021-03-25 12:50] VITALS: BP 168/99
[2021-03-25 19:23] VITALS: BP 149/90
[2021-03-26 00:51] VITALS: BP 161/108
[2021-03-26] MEDS: morphine SULFATE 10 MG/ML, 1ML IV PRN ×5 (00:54→20:47)
[2021-03-26 01:00] VITALS: BP 165/95
[2021-03-26] MEDS ORDERED: GUAIFENESIN 200 MG TABLET PO PRN (03:00)
[2021-03-26] MEDS: CEFTRIAXONE 1,000 MG in DEXTROSE 5% 50 ML IVPB SCH (05:59)
[2021-03-26 06:05] LABS: BASOPHILS % (AUTO) 0 % (0-1); EOSINOPHILS % (AUTO) 1 % (1-7); LYMPHOCYTES % (AUTO) 7 % (22-44); MEAN CORPUSCULAR HEMOGLOBIN 27.2 pg (27.5-34.5); MEAN CORPUSCULAR HGB CONC 33.7 g/dL (33.2-36.2); MEAN PLATELET VOLUME 7.3 fL (7.4-10.4); MONOCYTES % (AUTO) 9 % (2-9); NEUTROPHILS % (AUTO) 83 % (42-75); PLATELET COUNT 215 x10^3/uL (130-400); RED BLOOD COUNT 5.57 x10^6/uL (4.38-5.82); RED CELL DISTRIBUTION WIDTH 14.3 % (9.4-14.8)
[2021-03-26 06:09] LABS: ANION GAP 7 mmol/L (5-15); CALCIUM 9.6 mg/dL (8.5-10.1); CHLORIDE 102 mmol/L (98-107); CREATININE 1.13 mg/dL (0.7-1.3)
[2021-03-26] MEDS: APIXABAN 5 MG TABLET PO SCH ×2 (08:27→20:32)
[2021-03-26] MEDS: DOXYCYCLINE 100MG TABLET PO SCH ×2 (08:27→20:32)
[2021-03-26] MEDS: SENNA/DOCUSATE TABLET PO SCH (08:28)
[2021-03-26 08:31] VITALS: BP 156/94
[2021-03-26 12:29] VITALS: BP 136/94
[2021-03-26 19:42] VITALS: BP 142/88
[2021-03-27 00:46] VITALS: BP 135/91
[2021-03-27] MEDS: morphine SULFATE 10 MG/ML, 1ML IV PRN ×4 (01:52→18:05)
[2021-03-27 05:42] LABS: BASOPHILS % (AUTO) 0 % (0-1); EOSINOPHILS % (AUTO) 2 % (1-7); LYMPHOCYTES % (AUTO) 11 % (22-44); MEAN CORPUSCULAR HEMOGLOBIN 27.1 pg (27.5-34.5); MEAN CORPUSCULAR HGB CONC 33.6 g/dL (33.2-36.2); MEAN PLATELET VOLUME 7.6 fL (7.4-10.4); MONOCYTES % (AUTO) 9 % (2-9); NEUTROPHILS % (AUTO) 77 % (42-75); PLATELET COUNT 207 x10^3/uL (130-400); RED BLOOD COUNT 5.48 x10^6/uL (4.38-5.82); RED CELL DISTRIBUTION WIDTH 14.2 % (9.4-14.8)
[2021-03-27 05:47] LABS: ANION GAP 8 mmol/L (5-15); CALCIUM 9.7 mg/dL (8.5-10.1); CHLORIDE 99 mmol/L (98-107)
[2021-03-27 05:48] LABS: CREATININE 1.17 mg/dL (0.7-1.3)
[2021-03-27] MEDS: CEFTRIAXONE 1,000 MG in DEXTROSE 5% 50 ML IVPB SCH (06:03)
[2021-03-27] MEDS: SENNA/DOCUSATE TABLET PO SCH (08:11)
[2021-03-27] MEDS: APIXABAN 5 MG TABLET PO SCH (08:11)
[2021-03-27 08:12] VITALS: BP 115/77
[2021-03-27] MEDS: DOXYCYCLINE 100MG TABLET PO SCH (08:12)
[2021-03-27] MEDS ORDERED: OXYC1TAB14 PO (11:30)
[2021-03-27] MEDS ORDERED: CEFD300C37 PO (11:30)
[2021-03-27] MEDS ORDERED: DOXY50CA35 PO ×3 (11:30→15:26)
[2021-03-27 13:09] VITALS: BP 133/86
[2021-03-27 19:31] VITALS: BP 138/81
== END 2021-03-27 20:20 | disposition home or self-care (01) | DRG 193 ==
LOC: ED 00:44 → INTOOBSV 03:30 → EDIP 03:30 → 3N 04:53 → OBSVTOIN 13:49
PROVIDERS: ADMIT Family Medicine; ATTEND Internal Medicine
DX: J15.9 Unspecified bacterial pneumonia (principal); J96.21 Acute and chronic respiratory failure with hypoxia; I27.82 Chronic pulmonary embolism; J98.11 Atelectasis; A53.9 Syphilis, unspecified; F14.10 Cocaine abuse, uncomplicated; F17.200 Nicotine dependence, unspecified, uncomplicated; Z20.822 Contact with and (suspected) exposure to COVID-19; I10 Essential (primary) hypertension; Z79.01 Long term (current) use of anticoagulants; Z86.718 Personal history of other venous thrombosis and embolism; Z88.0 Allergy status to penicillin
CPT/HCPCS: 36415; 71045; 80048; 80053; 83690; 83735; 83880; 84100; 84484; 85025; 87040; 93005; 96374; 96375; G0378; J0456; J0696; J2405; U0005; J2270; J7050; U0003